=== PATIENT | male | born 1990 | race Asian ===

== ENCOUNTER 2017-06-30 23:46 | Emergency (ER) | payer SELFPAY ==
[~2017-06-30] VITALS: Ht 177.8 cm; Wt 65.8 kg
[2017-07-01 00:16] VITALS: BP 122/90
[2017-07-01] MEDS ORDERED: TDAP [DIPH/PERTUSSIS/TET] 0.5 ML VIAL IM ONE ×2 (00:30→00:35)
[2017-07-01] MEDS ORDERED: AMOX/CLAVULANATE 875 MG TABLET PO ONE (00:30)
[2017-07-01] MEDS ORDERED: AMOX/CLAVULANATE 875 MG TABLET ONE (00:34)
== END 2017-07-01 00:43 | disposition home or self-care (01) ==
LOC: ER 23:46
DX: S61.452A Open bite of left hand, initial encounter (principal); S60.413A Abrasion of left middle finger, initial encounter; S60.415A Abrasion of left ring finger, initial encounter; W54.0XXA Bitten by dog, initial encounter; Y93.89 Activity, other specified; Y92.89 Other specified places as the place of occurrence of the external cause; Y99.8 Other external cause status
CPT/HCPCS: 90715; A4606; Z7610